=== PATIENT | male | born 1990 | race Caucasian/White ===

== ENCOUNTER 2019-11-06 22:15 | Emergency (ER) | payer BC ==
[2019-11-06] MEDS ORDERED: Ondansetron 4 MG/2 ML SDV IVPUSH ONE (23:41)
[2019-11-06] MEDS ORDERED: Sodium Chloride 0.9% 1,000 ML IV SCH (23:45)
[2019-11-07 00:16] LABS: BLOOD UREA NITROGEN,BUN 10 mg/dL (7.0-18.0); CARBON DIOXIDE,CO2 27.2 mmol/L (21.0-32.0); CHLORIDE,CL 105 mmol/L (98-107); GLUCOSE RANDOM 121 mg/dL (74-106); LIPASE 172 U/L (73-393); POTASSIUM,K 3.9 mmol/L (3.5-5.1); SODIUM,NA 143 mmol/L (136-148)
[2019-11-07] MEDS ORDERED: Iopamidol 755 Mg/ML 100 ML Bottle IVPUSH STA (00:38)
[2019-11-07] MEDS ORDERED: Morphine 4 MG/ML Syringe IVPUSH ONE (01:08)
[2019-11-07] MEDS ORDERED: Morphine 4 MG/ML Syringe ONE (01:09)
--- NOTE | 2019-11-07 01:41 | CT ---
INDICATION: Abdominal pain TECHNIQUE: CT Abdomen and pelvis with i.v. contrast. Coronal and sagittal reformats were obtained. CONTRAST: 100 mL Isovue 370 COMPARISON: None FINDINGS: Lower chest: Unremarkable. Liver: Unremarkable. Spleen: Unremarkable. Pancreas: Unremarkable. Gallbladder: Unremarkable. Kidney: There are tiny densities in the renal calices bilaterally which may be due to tiny stones or early contrast excretion. Adrenal: Unremarkable. Bowel: Unremarkable. The appendix is normal in appearance and size. Vascular: Unremarkable. Lymph: Unremarkable. Peritoneum: Unremarkable. No pneumoperitoneum is seen. No significant ascites is noted. Pelvis: Unremarkable. Soft tissue: Unremarkable. Bone: Unremarkable for age. IMPRESSION: 1. Unremarkable with no CT correlate for the patient`s symptoms seen. Dictated by Misael Tiwari MD @ 11/07/2019 1:40:07 AM Please note that all CT scans at this facility use dose modulation, iterative reconstruction, and/or weight-based dosing when appropriate to reduce radiation dose to as low as reasonably achievable. Dictated by: Misael Tiwari MD @ 11/07/2019 01:40:17 (Electronically Signed)
--- NOTE | 2019-11-07 05:05 | EDM.PDOC ---
ED HPI GENERAL MEDICAL PROBLEM - General Chief Complaint: Abdominal Pain Stated Complaint: STOMACH PAIN, VOMITTING, Time Seen by Provider: 11/06/19 23:33 - History of Present Illness INITIAL COMMENTS - FREE TEXT/NARRATIVE: Pt presents with generalized abdominal pain, associated with nausea and vomiting. Today, the pain worsened and pt could not keep any thing down. No fevers, chills, blood in vomit or stool. Pt denies chest pain and/or sob. abdomen Pain Score (Numeric/FACES): 8 - Related Data Allergies Allergy/AdvReac Type Severity Reaction Status Date / Time No Known Allergies Allergy Verified 11/06/19 23:08 Home Meds: Home Meds . [No Known Home Meds] 11/06/19 [History] Past Medical History - Past Health History Medical/Surgical History: Denies Medical/Surgical History Neurological History: Reports: None Psychiatric History: Reports: None Endocrine/Metabolic History: Reports: None Hematologic History: Reports: None Immunologic History: Reports: None Oncologic (Cancer) History: Reports: None Dermatologic History: Reports: None - Past Surgical History Head Surgeries/Procedures: Reports: None Musculoskeletal Surgical History: Reports: Other (See Below) Other Musculoskeletal Surgeries/Procedures:: plate/screws in left shoulder Social & Family History - Family History Family Medical History: Noncontributory - Tobacco Use Smoking Status *Q: Current Every Day Smoker Years of Tobacco use: 9 Packs/Tins Daily: 0.5 Used Tobacco, but Quit: No - Caffeine Use Caffeine Use: Reports: Coffee, Energy Drinks, Soda - Recreational Drug Use Recreational Drug Use: Yes Drug Use in Last 12 Months: Yes Recreational Drug Type: Reports: Marijuana/Hashish Recreational Drug Use Frequency: Not Used In Over 1 Month ED ROS GENERAL - Review of Systems Review Of Systems: See Below Constitutional: Denies: Fever, Chills, Weakness, Fatigue HEENT: Reports: No Symptoms Respiratory: Reports: No Symptoms. Denies: Shortness of Breath Cardiovascular: Reports: No Symptoms. Denies: Chest Pain, Palpitations GI/Abdominal: Reports: Abdominal Pain, Anorexia, Nausea, Vomiting Skin: Reports: No Symptoms Neurological: Reports: No Symptoms ED EXAM, GI/ABD - Physical Exam Exam: See Below Exam Limited By: No Limitations General Appearance: Alert, WD/WN, No Apparent Distress Head: Atraumatic, Normocephalic Neck: Normal Inspection Respiratory/Chest: No Respiratory Distress, Lungs Clear, Normal Breath Sounds Cardiovascular: Regular Rate, Rhythm, No JVD, No Murmur GI/Abdominal Exam: Soft, Non-Tender, No Distention Neurological: Alert, Oriented, Normal Cognition, Normal Gait Course - Vital Signs Last Recorded V/S: Last Vital Signs Temp 98.5 F 11/06/19 23:05 Pulse 66 11/07/19 01:05 Resp 18 11/07/19 01:05 BP 139/82 11/07/19 01:05 Pulse Ox 96 11/07/19 01:05 - Orders/Labs/Meds Orders: Active Orders 24 hr Category Date Time Status EKG 12 Lead [EKG Documentation Completion] [RC] STAT Care 11/07/19 01:15 Active Labs: Laboratory Tests 11/06/19 11/06/19 11/06/19 Range/Units 00:01 23:48 23:48 WBC 12.29 H (4.0-11.0) K/uL RBC 4.45 L (4.50-5.90) M/uL Hgb 14.6 (13.0-17.0) g/dL Hct 42.4 (38.0-50.0) % MCV 95.3 (80.0-98.0) fL MCH 32.8 H (27.0-32.0) pg MCHC 34.4 (31.0-37.0) g/dL RDW Std Deviation 44.1 (28.0-62.0) fl RDW Coeff of Vanna 13 (11.0-15.0) % Plt Count 262 (150-400) K/uL MPV 10.30 (7.40-12.00) fL Neut % (Auto) 71.2 (48.0-80.0) % Lymph % (Auto) 17.1 (16.0-40.0) % [place] % (Auto) 8.7 (0.0-15.0) % Eos % (Auto) 2.8 (0.0-7.0) % Baso % (Auto) 0.2 (0.0-1.5) % Neut # (Auto) 8.8 H (1.4-5.7) K/uL Lymph # (Auto) 2.1 (0.6-2.4) K/uL [place] # (Auto) 1.1 H (0.0-0.8) K/uL Eos # (Auto) 0.3 (0.0-0.7) K/uL Baso # (Auto) 0.0 (0.0-0.1) K/uL Nucleated RBC % 0.0 /100WBC Nucleated RBCs # 0 K/uL Sodium 143 (136-148) mmol/L Potassium 3.9 (3.5-5.1) mmol/L Chloride 105 (98-107) mmol/L Carbon Dioxide 27.2 (21.0-32.0) mmol/L BUN 10 (7.0-18.0) mg/dL Creatinine 0.9 (0.8-1.3) mg/dL Est Cr Clr Drug Dosing 131.73 mL/min Estimated GFR (MDRD) > 60.0 ml/min Glucose 121 H (74-106) mg/dL Calcium 9.3 (8.5-10.1) mg/dL Total Bilirubin 0.5 (0.2-1.0) mg/dL AST 19 (15-37) IU/L ALT 29 (14-63) IU/L Alkaline Phosphatase 70 (46-116) U/L Troponin I < 0.050 (0.000-0.056) ng/mL Total Protein 7.2 (6.4-8.2) g/dL Albumin 3.9 (3.4-5.0) g/dL Globulin 3.3 (2.6-4.0) g/dL Albumin/Globulin Ratio 1.2 (0.9-1.6) Lipase 172 (73-393) U/L Urine Color Urine Appearance Urine pH (5.0-8.0) Ur Specific [place] (1.001-1.035) Urine Protein (NEGATIVE) mg/dL Urine Glucose (UA) (NEGATIVE) mg/dL Urine Ketones (NEGATIVE) mg/dL Urine Occult Blood (NEGATIVE) Urine Nitrite (NEGATIVE) Urine Bilirubin (NEGATIVE) Urine Urobilinogen (<2.0) EU/dL Ur Leukocyte Esterase (NEGATIVE) 11/07/19 Range/Units 01:05 WBC (4.0-11.0) K/uL RBC (4.50-5.90) M/uL Hgb (13.0-17.0) g/dL Hct (38.0-50.0) % MCV (80.0-98.0) fL MCH (27.0-32.0) pg MCHC (31.0-37.0) g/dL RDW Std Deviation (28.0-62.0) fl RDW Coeff of Vanna (11.0-15.0) % Plt Count (150-400) K/uL MPV (7.40-12.00) fL Neut % (Auto) (48.0-80.0) % Lymph % (Auto) (16.0-40.0) % [place] % (Auto) (0.0-15.0) % Eos % (Auto) (0.0-7.0) % Baso % (Auto) (0.0-1.5) % Neut # (Auto) (1.4-5.7) K/uL Lymph # (Auto) (0.6-2.4) K/uL [place] # (Auto) (0.0-0.8) K/uL Eos # (Auto) (0.0-0.7) K/uL Baso # (Auto) (0.0-0.1) K/uL Nucleated RBC % /100WBC Nucleated RBCs # K/uL Sodium (136-148) mmol/L Potassium (3.5-5.1) mmol/L Chloride (98-107) mmol/L Carbon Dioxide (21.0-32.0) mmol/L BUN (7.0-18.0) mg/dL Creatinine (0.8-1.3) mg/dL Est Cr Clr Drug Dosing mL/min Estimated GFR (MDRD) ml/min Glucose (74-106) mg/dL Calcium (8.5-10.1) mg/dL Total Bilirubin (0.2-1.0) mg/dL AST (15-37) IU/L ALT (14-63) IU/L Alkaline Phosphatase (46-116) U/L Troponin I (0.000-0.056) ng/mL Total Protein (6.4-8.2) g/dL Albumin (3.4-5.0) g/dL Globulin (2.6-4.0) g/dL Albumin/Globulin Ratio (0.9-1.6) Lipase (73-393) U/L Urine Color YELLOW Urine Appearance CLEAR Urine pH 7.0 (5.0-8.0) Ur Specific [place] 1.010 (1.001-1.035) Urine Protein NEGATIVE (NEGATIVE) mg/dL Urine Glucose (UA) NEGATIVE (NEGATIVE) mg/dL Urine Ketones NEGATIVE (NEGATIVE) mg/dL Urine Occult Blood NEGATIVE (NEGATIVE) Urine Nitrite NEGATIVE (NEGATIVE) Urine Bilirubin NEGATIVE (NEGATIVE) Urine Urobilinogen 0.2 (<2.0) EU/dL Ur Leukocyte Esterase NEGATIVE (NEGATIVE) Meds: Medications Discontinued Medications Generic Name Dose Route Start Last Admin Trade Name Fredisq PRN Reason Stop Dose Admin Sodium Chloride 1,000 mls @ 999 mls/hr 11/06/19 23:45 11/06/19 23:56 Normal Saline IV 999 mls/hr ASDIRECTED CHAPIN Administration Iopamidol 100 ml 11/07/19 00:38 11/07/19 00:53 Isovue-370 (76%) IVPUSH 11/07/19 00:39 100 ml ONETIME STA Administration Morphine Sulfate 4 mg 11/07/19 01:08 11/07/19 01:12 Morphine IVPUSH 11/07/19 01:09 4 mg ONETIME ONE Administration Morphine Sulfate Confirm 11/07/19 01:09 11/07/19 05:13 Morphine Administered 11/07/19 01:10 Not Given Dose 4 mg .ROUTE .STK-MED ONE Ondansetron HCl 4 mg 11/06/19 23:41 11/06/19 23:54 Zofran IVPUSH 11/06/19 23:42 4 mg ONETIME ONE Administration - Re-Assessments/Exams Free Text/Narrative Re-Assessment/Exam: 11/07/19 04:58 Pt presents with generalized abdominal pain, associated with nausea and vomiting. Today, the pain worsened and pt could not keep any thing down. VS stable and PE Benign. Labs shows mild leukocytosis. due to epigastric nature of the pain we did cardiac eval. Troponin negative. ECG shows findings consistent with benign early repolarization. Pt again denies chest pain. CT abdomen pelvis negative for acute abnormality. Pt significantly improved with ED therapy. Work up results discussed with pt. Being improved, pt is comfortable with discharge. zofran prescribed. Strict return precautions discussed should symptoms worsen or any concerns arise. 11/07/19 05:02 Departure - Departure Time of Disposition: 05:05 Disposition: Home, Self-Care 01 Condition: Good Clinical Impression: Abdominal pain, Vomiting - Discharge Information *PRESCRIPTION DRUG MONITORING PROGRAM REVIEWED*: Not Applicable *COPY OF PRESCRIPTION DRUG MONITORING REPORT IN PATIENT OSBALDO: Not Applicable Instructions: Nausea and Vomiting, Adult, [id number], Abdominal Pain, Adult, [id number] Referrals: PCP,Not In Area [Primary Care Provider] - Forms: ED Department Discharge Additional Instructions: The following information is given to patients seen in the emergency department who are being discharged to home. This information is to outline your options for follow-up care. We provide all patients seen in our emergency department with a follow-up referral. The need for follow-up, as well as the timing and circumstances, are variable depending upon the specifics of your emergency department visit. If you don't have a primary care physician on staff, we will provide you with a referral. We always advise you to contact your personal physician following an emergency department visit to inform them of the circumstance of the visit and for follow-up with them and/or the need for any referrals to a consulting specialist. The emergency department will also refer you to a specialist when appropriate. This referral assures that you have the opportunity for follow-up care with a specialist. All of these measure are taken in an effort to provide you with optimal care, which includes your follow-up. Under all circumstances we always encourage you to contact your private physician who remains a resource for coordinating your care. When calling for follow-up care, please make the office aware that this follow-up is from your recent emergency room visit. If for any reason you are refused follow-up, please contact the [facility] Emergency Department at and asked to speak to the emergency department charge nurse. [facility] [address] [place] [id number] [address] Sepsis Event Note - Evaluation Sepsis Screening Result: No Definite Risk - Focused Exam Vital Signs: Vital Signs Temp Pulse Resp BP Pulse Ox 02/16/20 01:05 66 18 139/82 96 11/06/19 23:05 98.5 F 83 18 121/65 97 Date Exam was Performed: 11/07/19 Time Exam was Performed: 09:25 - My Orders Last 24 Hours: My Active Orders 11/07/19 01:15 EKG 12 Lead [EKG Documentation Completion] [RC] STAT - Assessment/Plan Last 24 Hours: My Active Orders 11/07/19 01:15 EKG 12 Lead [EKG Documentation Completion] [RC] STAT
== END 2019-11-07 05:30 | disposition home or self-care (01) ==
LOC: MW.ED 22:15
DX: R10.84 Generalized abdominal pain (principal); R11.2 Nausea with vomiting, unspecified; F17.210 Nicotine dependence, cigarettes, uncomplicated
CPT/HCPCS: 36415; 74177; 80053; 81003; 83690; 84484; 85025; 93005; 96361; 96374; 96375; 99284; J2270; J2405; J7030; Q9967